=== PATIENT | male | born 1975 | race Two or more races ===

== ENCOUNTER → 2021-01-18 09:14 | Outpatient (CLI) | payer SELFPAY ==
--- NOTE | 2021-01-18 09:22 | US_ITS ---
PROCEDURE: US LIVER CLINICAL INDICATION: ELEVATED LIVER ENZYMES COMPARISON: No exams were available for comparison FINDINGS: PANCREAS: Unremarkable. No obvious mass or abnormal fluid collection. No ductal dilatation LIVER: Diffuse increased echogenicity of the liver with poor through transmission of sound consistent with hepatic steatosis. No focal liver lesion demonstrated. There is appropriate direction of blood flow within non dilated portal vein. RIGHT KIDNEY: Unremarkable. Normal size and echogenicity. No hydronephrosis GALLBLADDER: There is a small gallstone present. No gallbladder wall thickening, pericholecystic fluid, or biliary dilatation. IMPRESSION: Cholelithiasis. Fatty liver Dictated by: Myles Nielsen MD 01/18/2021 17:44 Myles Nielsen MD in [place] 01/18/2021 17:44
== END ==
PROVIDERS: PCP Nurse Practitioner Family; Visit Provider Nurse Practitioner Family
DX: R74.8 Abnormal levels of other serum enzymes (principal)
CPT/HCPCS: 76705